=== PATIENT | male | born 1990 | race Caucasian/White ===

== ENCOUNTER 2017-02-13 14:55 | Emergency (ER) | payer SELFPAY ==
[2017-02-13 18:24] VITALS: BP 116/66
== END 2017-02-13 18:24 | disposition home or self-care (01) ==
LOC: ED 14:55
DX: S90.852A Superficial foreign body, left foot, initial encounter (principal); R03.0 Elevated blood-pressure reading, without diagnosis of hypertension; X58.XXXA Exposure to other specified factors, initial encounter; Y93.89 Activity, other specified; Y99.8 Other external cause status; Y92.89 Other specified places as the place of occurrence of the external cause
CPT/HCPCS: 90715; J2001; Q0092